=== PATIENT | female | born 1990 | race Caucasian/White ===

== ENCOUNTER 2019-01-19 19:13 | Emergency (ER) | payer OTHER ==
[~2019-01-19] VITALS: Ht 167.6 cm; Wt 72.6 kg
[~2019-01-19 19:13] MED LIST: IBUP800; Percocet 5-3251 EACH PO; Verotin-Gr Cap1 EACH PO
== END 2019-01-19 19:53 | disposition home or self-care (01) ==
LOC: ER 19:13
DX: O99.89 Other specified diseases and conditions complicating pregnancy, childbirth and the puerperium (principal); H54.61 Unqualified visual loss, right eye, normal vision left eye; Z3A.08 8 weeks gestation of pregnancy; Z91.040 Latex allergy status; Z91.048 Other nonmedicinal substance allergy status; O99.331 Smoking (tobacco) complicating pregnancy, first trimester; F17.200 Nicotine dependence, unspecified, uncomplicated
CPT/HCPCS: 99283

== ENCOUNTER 2019-09-07 10:50 | Inpatient (IN) | payer OTHER ==
[~2019-09-07] VITALS: Ht 170.2 cm; Wt 78.0 kg
[2019-09-09] MEDS ORDERED: THERA-D2000 UNIT PO (12:55)
[2019-09-09 13:27] LABS: BASOPHILS ABSOLUTE AUTO 0.02 K/mm3 (0.00-0.23); BASOPHILS PERCENT AUTO 0 % (0-2); EOSINOPHILS ABSOLUTE AUTO 0.04 K/mm3 (0.00-0.68); EOSINOPHILS PERCENT AUTO 0 % (0-6); Hematocrit 36.1 % (33.0-51.0); Hemoglobin 11.3 g/dL (11.5-16.0); IMMATURE GRAN ABSOLUTE AUTO 0.05 K/mm3 (0.00-0.10); IMMATURE GRAN PERCENT AUTO 1 % (0-1); LYMPHOCYTES ABSOLUTE AUTO 1.99 K/mm3 (0.84-5.20); LYMPHOCYTES PERCENT AUTO 19 % (21-46); MONOCYTES ABSOLUTE AUTO 0.47 K/mm3 (0.16-1.47); MONOCYTES PERCENT AUTO 4 % (4-13); Mean Corpuscular HGB 27.3 pg (26.0-34.0); Mean Corpuscular HGB Conc 31.3 g/dL (31.5-36.5); Mean Corpuscular Volume 87 fL (80-100); Mean Platelet Volume 10.7 fL (9.1-12.4); NEUTROPHILS ABSOLUTE AUTO 8.02 K/mm3 (1.96-9.15); NEUTROPHILS PERCENT AUTO 76 % (41-73); Platelet Count 228 K/mm3 (150-400); RDW Coefficient Variation 13.1 % (11.7-14.2); RDW Standard Deviation 41.7 fL (35.1-46.3); Red Blood Cell Count 4.14 M/mm3 (3.80-5.20); White Blood Cell Count 10.59 K/mm3 (4.00-11.30)
[2019-09-10 08:11] LABS: PCO2 Cord - Venous 42.9 mmHg (40-50); PO2 Cord - Venous 20.1 mmHg (28-32); pH Umbilical Cord - Venous 7.34 (7.26-7.35)
[2019-09-10 08:12] LABS: PCO2 Cord - Arterial 57.9 mmHg (40-50); pH Cord - Arterial 7.26 (7.28-7.35)
[2019-09-10 08:13] LABS: PO2 Cord - Arterial < 13 mmHg (16-20)
--- NOTE | 2019-09-10 09:05 | NUR ---
REPORT TO YELITZA MELO
--- NOTE | 2019-09-10 09:12 | NUR ---
0910 ASSUMED CARE OF PATIENT
--- NOTE | 2019-09-10 09:18 | NUR ---
0915 FUNDUS FIRM @ 1 BELOW UMBILICUS, SCANT BLEEDING. PATIENT ABLE TO START MOVING LEGS. HOLDING INFANT AND BOTTLEFEEDING.
--- NOTE | 2019-09-10 09:30 | NUR ---
FF MIDLINE @ 1/UMBILICUS, SCANT BLEEDING. CONTINUES SKIN TO SKIN W/BABY.
--- NOTE | 2019-09-10 09:50 | NUR ---
FF @ MIDLINE 1/U, SCANT BLEEDING, PHANI CARE DONE. ABDOMINAL BINDER ON.
--- NOTE | 2019-09-10 18:53 | NUR ---
PT AND THIERRY TALKING ABOUT LEAVING AGAINST MEDICAL ADVICE. PT EDUCATED ON THE IMPORTANCE OF BEING MONITORED DURING HER RECOVERY PERIOD AND THAT INSURANCE MAYNOT BE COVERED. WILL UPDATE WONDERLY AFTER HE IS FREE WITH A CASE.
--- NOTE | 2019-09-10 19:14 | NUR ---
DR MARADIAGA FOUND IN OR, UPDATED PT IS WANTING TO LEAVE AMA. DR. FUNEZLY REQUESTED Curtis CARDENAS CNM OR Solomon CHAPMAN CNM BE NOTIFIED. Curtis BARRY CNM FOUND IN HALLWAY AND UPDATED. CHART REVIEWED BY PROVIDER. NO NEW ORDERS GIVEN. PT UPDATED REGARDING NO PAIN MEDICATION ORDERS WOULD BE GIVEN. NICOTINE PATCHES OFFERED TO BOTH PT AND THIERRY, BOTH REFUSED. PT VERBALLY NOTIFIED HER STAY WOULD NOT BE COVERED BY INSURANCE. PT TO DECIDE IF THEY WANT TO LEAVE AGAINST MEDICAL ADVICE. REPORT AND UPDATE GIVEN TO KAMERON VALLES.
[2019-09-11 03:40] LABS: BASOPHILS ABSOLUTE AUTO 0.03 K/mm3 (0.00-0.23); BASOPHILS PERCENT AUTO 0 % (0-2); EOSINOPHILS ABSOLUTE AUTO 0.05 K/mm3 (0.00-0.68); EOSINOPHILS PERCENT AUTO 1 % (0-6); Hematocrit 29.9 % (33.0-51.0); Hemoglobin 9.1 g/dL (11.5-16.0); IMMATURE GRAN ABSOLUTE AUTO 0.03 K/mm3 (0.00-0.10); IMMATURE GRAN PERCENT AUTO 0 % (0-1); LYMPHOCYTES ABSOLUTE AUTO 2.42 K/mm3 (0.84-5.20); LYMPHOCYTES PERCENT AUTO 23 % (21-46); MONOCYTES ABSOLUTE AUTO 0.54 K/mm3 (0.16-1.47); MONOCYTES PERCENT AUTO 5 % (4-13); Mean Corpuscular HGB 26.6 pg (26.0-34.0); Mean Corpuscular HGB Conc 30.4 g/dL (31.5-36.5); Mean Corpuscular Volume 87 fL (80-100); NEUTROPHILS ABSOLUTE AUTO 7.47 K/mm3 (1.96-9.15); NEUTROPHILS PERCENT AUTO 71 % (41-73); Platelet Count 187 K/mm3 (150-400); RDW Coefficient Variation 13.2 % (11.7-14.2); RDW Standard Deviation 41.8 fL (35.1-46.3); Red Blood Cell Count 3.42 M/mm3 (3.80-5.20); White Blood Cell Count 10.54 K/mm3 (4.00-11.30)
[2019-09-11 03:59] LABS: Percent Saturation 9.3 % (15.0-50.0)
[2019-09-11] MEDS ORDERED: IBUP800 PO (11:02)
[2019-09-11] MEDS ORDERED: Percocet 5-3251 EACH PO (11:02)
--- NOTE | 2019-09-11 18:06 | NUR ---
DISCHARGED TO HOME AT 1130 WITH BABY, PAPERWORK AND BELONGINGS. ESCORTED TO CAR IN W/C PER PATIENT PREFRENCE
== END 2019-09-11 11:35 | disposition home or self-care (01) | DRG 787 ==
LOC: BC 09-10 06:21
PROVIDERS: ADMIT Obstetrics & Gynecology
PROC: 10D00Z1 Extraction of Products of Conception, Low, Open Approach (ICD-10-PCS; principal; 2019-09-10 07:30)
DX: O34.211 Maternal care for low transverse scar from previous cesarean delivery (principal); O99.354 Diseases of the nervous system complicating childbirth; O99.02 Anemia complicating childbirth; D50.9 Iron deficiency anemia, unspecified; G35 Multiple sclerosis; Z3A.39 39 weeks gestation of pregnancy; Z37.0 Single live birth
CPT/HCPCS: 36415; 82728; 82803; 83540; 83550; 85025; 86850; 86900; 86901; J0690; J1885; J2370; J2405; J2590; J2704; J2765; J3010; J7120

== ENCOUNTER 2022-03-29 10:35 | Inpatient (IN) | payer OTHER ==
[~2022-03-29] VITALS: Ht 170.2 cm; Wt 78.9 kg
[~2022-03-29 10:35] MED LIST changes: +IBUP800 PO; +THERA-D2000 UNIT PO
[2022-03-29 11:14] LABS: BASOPHILS ABSOLUTE AUTO 0.03 K/mm3 (0.00-0.23); BASOPHILS PERCENT AUTO 0 % (0-2); EOSINOPHILS ABSOLUTE AUTO 0.04 K/mm3 (0.00-0.68); EOSINOPHILS PERCENT AUTO 1 % (0-6); Hematocrit 34.4 % (33.0-51.0); Hemoglobin 11.8 g/dL (11.5-16.0); IMMATURE GRAN ABSOLUTE AUTO 0.02 K/mm3 (0.00-0.10); IMMATURE GRAN PERCENT AUTO 0 % (0-1); LYMPHOCYTES ABSOLUTE AUTO 1.73 K/mm3 (0.84-5.20); LYMPHOCYTES PERCENT AUTO 20 % (21-46); MONOCYTES ABSOLUTE AUTO 0.47 K/mm3 (0.16-1.47); MONOCYTES PERCENT AUTO 6 % (4-13); Mean Corpuscular HGB 31.6 pg (26.0-34.0); Mean Corpuscular HGB Conc 34.3 g/dL (31.5-36.5); Mean Corpuscular Volume 92 fL (80-100); Mean Platelet Volume 11.1 fL (9.1-12.4); NEUTROPHILS PERCENT AUTO 73 % (41-73); Platelet Count 151 K/mm3 (150-400); RDW Coefficient Variation 12.7 % (11.7-14.2); RDW Standard Deviation 42.6 fL (35.1-46.3); Red Blood Cell Count 3.73 M/mm3 (3.80-5.20); White Blood Cell Count 8.49 K/mm3 (4.00-11.30)
[2022-03-29] MEDS ORDERED: LORA10ER PO (11:19)
[2022-03-29 13:45] LABS: PCO2 Cord - Arterial 51.3 mmHg (40-50); pH Cord - Arterial 7.31 (7.28-7.35)
[2022-03-29 13:49] LABS: PCO2 Cord - Venous 40.4 mmHg (40-50); PO2 Cord - Venous 29.7 mmHg (28-32); pH Umbilical Cord - Venous 7.35 (7.26-7.35)
--- NOTE | 2022-03-29 13:54 | NUR ---
03/29/22 1354 LorenaKourtney Miladis VIGOROUS MALE BORN AT 1331 WITH APGARS 9/9. WEIGHT 7-14 (3580) HEAD 14" CHEST 13.5". CORD BLOOD GIVEN TO TIMI MELO AND CORD GASES ON ICE AND GIVEN TO TREVER RT. METHERGINE 0.2 GIVEN IM LEFT THIGH AT 1354. SPECIMENS SENT TO PATHOLOGY.
--- NOTE | 2022-03-29 17:55 | NUR ---
ASSUMED CARE. PT DRESSING IS SATURATED SO MAY NEED TO ADD PRESSURE DRESSING SOON. RESTING IN BED AND NORCO GIVEN FOR PAIN. LOCHIA SCANT. VSS.
[2022-03-30 05:27] LABS: BASOPHILS ABSOLUTE AUTO 0.01 K/mm3 (0.00-0.23); BASOPHILS PERCENT AUTO 0 % (0-2); EOSINOPHILS ABSOLUTE AUTO 0.02 K/mm3 (0.00-0.68); EOSINOPHILS PERCENT AUTO 0 % (0-6); Hematocrit 30.3 % (33.0-51.0); Hemoglobin 10.3 g/dL (11.5-16.0); IMMATURE GRAN ABSOLUTE AUTO 0.04 K/mm3 (0.00-0.10); IMMATURE GRAN PERCENT AUTO 0 % (0-1); LYMPHOCYTES ABSOLUTE AUTO 1.46 K/mm3 (0.84-5.20); LYMPHOCYTES PERCENT AUTO 14 % (21-46); MONOCYTES ABSOLUTE AUTO 0.33 K/mm3 (0.16-1.47); MONOCYTES PERCENT AUTO 3 % (4-13); Mean Corpuscular HGB 31.6 pg (26.0-34.0); Mean Corpuscular Volume 93 fL (80-100); Mean Platelet Volume 11.3 fL (9.1-12.4); NEUTROPHILS ABSOLUTE AUTO 8.61 K/mm3 (1.96-9.15); NEUTROPHILS PERCENT AUTO 82 % (41-73); Platelet Count 151 K/mm3 (150-400); RDW Coefficient Variation 12.7 % (11.7-14.2); RDW Standard Deviation 43.6 fL (35.1-46.3); Red Blood Cell Count 3.26 M/mm3 (3.80-5.20); White Blood Cell Count 10.47 K/mm3 (4.00-11.30)
[2022-03-30] MEDS ORDERED: IBU800 MG PO (13:40)
[2022-03-30] MEDS ORDERED: HYDROCODONE-AC1 EA10 (13:42)
== END 2022-03-30 14:25 | disposition home or self-care (01) | DRG 785 ==
LOC: OBS 10:35 → BC 10:36 → OBS 10:44 → BC 10:45
PROVIDERS: ADMIT Obstetrics & Gynecology
PROC: 0HB7XZZ Excision of Abdomen Skin, External Approach (ICD-10-PCS; 2022-03-29)
PROC: 10D00Z1 Extraction of Products of Conception, Low, Open Approach (ICD-10-PCS; principal; 2022-03-29 13:00)
PROC: 0UB70ZZ Excision of Bilateral Fallopian Tubes, Open Approach (ICD-10-PCS; 2022-03-29 13:00)
DX: O34.211 Maternal care for low transverse scar from previous cesarean delivery (principal); Z91.040 Latex allergy status; O99.334 Smoking (tobacco) complicating childbirth; F17.200 Nicotine dependence, unspecified, uncomplicated; Z3A.39 39 weeks gestation of pregnancy; Z37.0 Single live birth; Z30.2 Encounter for sterilization
CPT/HCPCS: 36415; 82803; 85025; 86850; 86900; 86901; 86923; 88302; 88305; A9270; J0690; J1100; J1885; J2210; J2270; J2370; J2405; J2704; J2765; J7120

== ENCOUNTER → 2023-05-16 | Outpatient (CLI) | payer OTHER ==
[~2023-05-16] MED LIST changes: +HYDROCODONE-AC1 EA10; +IBU800 MG PO; +LORA10ER PO
[2023-05-16 16:14] LABS: BASOPHILS ABSOLUTE AUTO 0.02 K/mm3 (0.00-0.23); BASOPHILS PERCENT AUTO 0 % (0-2); EOSINOPHILS ABSOLUTE AUTO 0.04 K/mm3 (0.00-0.68); EOSINOPHILS PERCENT AUTO 0 % (0-6); Hematocrit 36.7 % (33.0-51.0); Hemoglobin 11.9 g/dL (11.5-16.0); IMMATURE GRAN ABSOLUTE AUTO 0.04 K/mm3 (0.00-0.10); IMMATURE GRAN PERCENT AUTO 0 % (0-1); LYMPHOCYTES ABSOLUTE AUTO 0.74 K/mm3 (0.84-5.20); LYMPHOCYTES PERCENT AUTO 7 % (21-46); MONOCYTES ABSOLUTE AUTO 0.06 K/mm3 (0.16-1.47); MONOCYTES PERCENT AUTO 1 % (4-13); Mean Corpuscular HGB 29.3 pg (26.0-34.0); Mean Corpuscular HGB Conc 32.4 g/dL (31.5-36.5); Mean Corpuscular Volume 90 fL (80-100); Mean Platelet Volume 11.2 fL (9.1-12.4); NEUTROPHILS ABSOLUTE AUTO 10.12 K/mm3 (1.96-9.15); NEUTROPHILS PERCENT AUTO 92 % (41-73); Platelet Count 297 K/mm3 (150-400); RDW Coefficient Variation 13.3 % (11.7-14.2); RDW Standard Deviation 44.5 fL (35.1-46.3); Red Blood Cell Count 4.06 M/mm3 (3.80-5.20); White Blood Cell Count 11.02 K/mm3 (4.00-11.30)
[2023-05-16 16:25] LABS: Albumin, Blood 3.8 g/dL (3.4-5.0); Albumin/Globulin Ratio 1.2 (0.8-1.8); Bilirubin, Total 0.6 mg/dL (0.1-1.0); Calcium, Blood 8.6 mg/dL (8.5-10.1); Creatinine, Blood 0.7 mg/dL (0.40-1.00); Globulin, Blood 3.2 g/dL (2.2-4.0); Potassium, Blood 4.6 mmol/L (3.5-5.5)
== END ==
LOC: LAB 14:05 → LAB SHORT 14:05
PROVIDERS: Psychiatry & Neurology Neurology
DX: G35 Multiple sclerosis (principal)
CPT/HCPCS: 80053; 85025

== ENCOUNTER 2023-12-21 15:28 | Emergency (ER) | payer OTHER ==
[~2023-12-21] VITALS: Ht 170.2 cm; Wt 68.0 kg
[2023-12-21 15:43] VITALS: BP 114/83
== END 2023-12-21 16:15 | disposition home or self-care (01) ==
LOC: ER 15:28
DX: T16.1XXA Foreign body in right ear, initial encounter (principal); F17.200 Nicotine dependence, unspecified, uncomplicated; W44.8XXA Other foreign body entering into or through a natural orifice, initial encounter
CPT/HCPCS: 69200; 99282-25

== ENCOUNTER → 2024-10-17 | Outpatient (CLI) | payer OTHER ==
[2024-10-17 14:50] LABS: BASOPHILS ABSOLUTE AUTO 0.06 K/mm3 (0.00-0.23); BASOPHILS PERCENT AUTO 1 % (0-2); EOSINOPHILS ABSOLUTE AUTO 0.15 K/mm3 (0.00-0.68); EOSINOPHILS PERCENT AUTO 2 % (0-6); Hemoglobin 12.8 g/dL (11.5-16.0); IMMATURE GRAN ABSOLUTE AUTO 0.01 K/mm3 (0.00-0.10); IMMATURE GRAN PERCENT AUTO 0 % (0-1); LYMPHOCYTES ABSOLUTE AUTO 2.84 K/mm3 (0.84-5.20); LYMPHOCYTES PERCENT AUTO 31 % (21-46); MONOCYTES ABSOLUTE AUTO 0.55 K/mm3 (0.16-1.47); MONOCYTES PERCENT AUTO 6 % (4-13); Mean Corpuscular HGB 29.8 pg (26.0-34.0); Mean Corpuscular HGB Conc 33.7 g/dL (31.5-36.5); Mean Corpuscular Volume 88 fL (80-100); Mean Platelet Volume 11.2 fL (9.1-12.4); NEUTROPHILS PERCENT AUTO 61 % (41-73); Platelet Count 258 K/mm3 (150-400); RDW Coefficient Variation 14.6 % (11.7-14.2); RDW Standard Deviation 47.4 fL (35.1-46.3); White Blood Cell Count 9.31 K/mm3 (4.00-11.30)
[2024-10-17 15:23] LABS: Albumin, Blood 4.4 g/dL (3.4-5.0); Albumin/Globulin Ratio 1.5 (0.8-1.8); Bilirubin, Total 0.9 mg/dL (0.1-1.0); Bun/Creatinine Ratio 19.6 (12.0-20.0); Calcium, Blood 8.8 mg/dL (8.5-10.1); Creatinine, Blood 0.71 mg/dL (0.40-1.00); Total Protein, Blood 7.4 g/dL (6.4-8.2)
[2024-10-19 09:34] LABS: IMMUNOGLOBULIN G 888 mg/dL (768-1632)
== END ==
LOC: LAB 13:40 → LAB SHORT 13:40
PROVIDERS: Psychiatry & Neurology Neurology
DX: Z91.89 Other specified personal risk factors, not elsewhere classified (principal)
CPT/HCPCS: 80053; 82306; 82784; 85025; 86355; 86356

== ENCOUNTER → 2025-04-25 | Outpatient (CLI) | payer OTHER ==
[2025-04-25 14:00] LABS: BASOPHILS ABSOLUTE AUTO 0.02 K/mm3 (0.00-0.23); BASOPHILS PERCENT AUTO 0 % (0-2); EOSINOPHILS ABSOLUTE AUTO 0.03 K/mm3 (0.00-0.68); EOSINOPHILS PERCENT AUTO 0 % (0-6); Hematocrit 35.8 % (33.0-51.0); Hemoglobin 12.0 g/dL (11.5-16.0); IMMATURE GRAN ABSOLUTE AUTO 0.03 K/mm3 (0.00-0.10); IMMATURE GRAN PERCENT AUTO 0 % (0-1); LYMPHOCYTES ABSOLUTE AUTO 0.77 K/mm3 (0.84-5.20); LYMPHOCYTES PERCENT AUTO 10 % (21-46); MONOCYTES ABSOLUTE AUTO 0.12 K/mm3 (0.16-1.47); MONOCYTES PERCENT AUTO 2 % (4-13); Mean Corpuscular HGB Conc 33.5 g/dL (31.5-36.5); Mean Corpuscular Volume 93 fL (80-100); NEUTROPHILS ABSOLUTE AUTO 6.42 K/mm3 (1.96-9.15); NEUTROPHILS PERCENT AUTO 87 % (41-73); NRBC ABSOLUTE 0.00 K/mm3 (0.00-0.02); NRBC Auto 0.0 /100 WBC (0.0-0.2); Platelet Count 221 K/mm3 (150-400); RDW Coefficient Variation 13.4 % (11.7-14.2); RDW Standard Deviation 45.5 fL (35.1-46.3)
[2025-04-25 14:07] LABS: Alanine Aminotransfer (ALT/SGP 23.0 U/L (12-78); Albumin, Blood 3.8 g/dL (3.4-5.0); Albumin/Globulin Ratio 1.2 (0.8-1.8); Anion Gap 9.0 mmol/L (3-11); Aspartate Aminotrans (AST/SGOT 13.0 U/L (12-37); Bilirubin, Total 0.6 mg/dL (0.1-1.0); Blood Urea Nitrogen 11.0 mg/dL (8-24); CO2, Blood 21.0 mmol/L (21-32); Calcium, Blood 8.5 mg/dL (8.5-10.1); Chloride, Blood 112.0 mmol/L (98-108); Creatinine, Blood 0.63 mg/dL (0.40-1.00); Globulin, Blood 3.1 g/dL (2.2-4.0); Glucose, Blood 118.0 mg/dL (70-99); Potassium, Blood 3.9 mmol/L (3.5-5.5); Sodium, Blood 138.0 mmol/L (136-145); Total Protein, Blood 6.9 g/dL (6.4-8.2)
[2025-04-26 19:10] LABS: CD19 COUNT OF LYMPHOCYTES <10 cells/uL (94-533); CD19 PERCENT OF LYMPHOCYTES <0.5 % (3.9-25.5); CD20 COUNT OF CD19 CELLS <10 cells/uL (92-530); CD20 PERCENT OF CD19 CELLS <0.5 % (97.1-99.8)
== END ==
LOC: LAB SHORT 11:28 → LAB 11:28
PROVIDERS: Psychiatry & Neurology Neurology
DX: Z51.81 Encounter for therapeutic drug level monitoring (principal); Z91.89 Other specified personal risk factors, not elsewhere classified
CPT/HCPCS: 80053; 82784; 85025; 86355; 86356